=== PATIENT | male | born 2000 | race Caucasian/White ===

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

== ENCOUNTER 2021-05-24 19:47 | Emergency (ER) | payer SELFPAY ==
[~2021-05-24] VITALS: Ht 188 cm; Wt 76.8 kg
[~2021-05-24 19:47] MED LIST changes: +CARAFATE 1GM1 G PO; +PROTONIX20 MG PO
[2021-05-24 20:00] VITALS: TEMP 98.7
[2021-05-24 21:25] VITALS: BP 134/78; PULSE 64
[2021-05-24] MEDS ORDERED: CEPHALEXIN500 M1 PO (21:26)
== END 2021-05-24 21:25 | disposition home or self-care (01) ==
LOC: COL.ER 19:47
DX: S61.012A Laceration without foreign body of left thumb without damage to nail, initial encounter (principal); J45.909 Unspecified asthma, uncomplicated; W26.9XXA Contact with unspecified sharp object(s), initial encounter; Y99.0 Civilian activity done for income or pay